=== PATIENT | female | born 1990 | race Caucasian/White ===

== ENCOUNTER 2019-11-19 04:09 | Inpatient (IN) | payer OTHER ==
[2019-11-19 04:57] VITALS: BMI 28.7
[2019-11-19] MEDS ORDERED: hydrALAZINE 20 MG/ML VIAL SLOW IVP PRN ×2 (05:39→05:50)
[2019-11-19 05:43] LABS: Amnisure Test RUPTURE DETECTED (No Rupture)
[2019-11-19 05:44] LABS: Amnisure Internal Control QC ACCEPTABLE (ACCEPTABLE)
[2019-11-19] MEDS ORDERED: Promethazine HCl 25 MG/ML VIAL IM PRN (05:50)
[2019-11-19] MEDS ORDERED: Lidocaine 1% (PF) 30 ML VIAL SC PRN (05:50)
[2019-11-19] MEDS ORDERED: NS / Oxytocin 40 units/1000ml 1,000 ML IV PRN (05:50)
[2019-11-19] MEDS ORDERED: Ondansetron PF 4 MG/2 ML Vial IVP PRN (05:50)
--- NOTE | 2019-11-19 06:28 | PRG ---
DATE OF SERVICE: 11/19/2019 PRIMARY OB: Dr. Leighton Garcia. CHIEF COMPLAINT: Leakage of fluid. HISTORY OF PRESENT ILLNESS: The patient is a 29-year-old, G4, P2 female with an intrauterine at 35 weeks and 5 days, presenting to Labor and Delivery after experiencing a large gush of fluid at around 4:30 this morning, followed by some persistent wetness. The patient reports she is feeling contractions that she would describe as Julio Cesar Marks at this time and reports that she lost her mucus plug yesterday. The patient denies any recent illness, fever, cough, headache, chest pain, or shortness of breath. She reports she has been having some nausea recently. Denies any vomiting. Reports a little bit of constipation. Denies diarrhea. Denies any new rashes, hip problems, knee problems, or muscle weakness. Denies vaginal bleeding, urinary urgency or frequency. PAST MEDICAL HISTORY: Hypothyroidism. PAST SURGICAL HISTORY: Right breast fibroadenoma removal, left wrist cystectomy, and D and C. MEDICATIONS: 1. Levothyroxine 200 mcg. 2. vitamins. ALLERGIES: NO KNOWN DRUG ALLERGIES. SOCIAL HISTORY: Denies drug, alcohol, or tobacco use. OB LABS: Blood type is O negative. Antibody screen is negative. Rubella is reactive, immune. RPR is nonreactive. Hepatitis B surface antigen nonreactive. HIV nonreactive. Paps negative. GC chlamydia is negative. One-hour Glucola is 132. REVIEW OF SYSTEMS: Per HPI. PHYSICAL EXAMINATION: VITAL SIGNS: Blood pressure 122/70, heart rate of 88, respiratory rate 18, saturating 100% on room air, and temperature 98.5. GENERAL: She appears to be in no acute distress. She is alert, oriented, cooperative, and pleasant to interact with. HEAD: Normocephalic and atraumatic. LUNGS: Clear to auscultation bilaterally. HEART: Regular rate and rhythm. ABDOMEN: Gravid and soft, nontender. EXTREMITIES: Nontender, nonedematous. : Per nursing staff is 2, 50, -2 station, who reports very wet perineum. AmniSure test has been collected and sent, results are not available at this moment. heart tracing for A shows baseline of 150s with moderate long-term variability, positive 10 x 10 accelerations, no decelerations. Baby B shows also baseline in the 150s. Appears to be distinct from baby A with the same baseline in the 150s, moderate long-term variability, 10 x 10 accelerations. Tocometer showing contractions about every 5 to 7 minutes. We will confirm by ultrasound presentation of the baby. ASSESSMENT AND PLAN: The patient is a 29-year-old, G4, P2 female with an intrauterine of di-di twin gestation at 35 weeks and 5 days, here for concerns of rupture of membranes. AmniSure test should be back soon. If it results as positive, plus her history is pretty convincing she has had rupture of membranes, will be admitted for induction of labor. Should it come back negative, we will proceed with a speculum exam for confirmatory testing. Dr. Garcia, her primary OB will be notified. Job ID: [id number]
[2019-11-19] MEDS: Betamet Acet/Betamet Na Ph 30 MG/5 ML VIAL IM SCH ×2 (06:39→18:30)
[2019-11-19] MEDS ORDERED: Ampicillin 2 GM in Sodium Chloride 0.9% 100 ML IVPB SCH ×2 (06:45→12:00)
[2019-11-19] MEDS: Dextrose 5%-Lactated Ringers 1,000 ML IV SCH ×2 (07:05→16:00)
[2019-11-19 07:23] LABS: Hemoglobin 10.1 g/dL (12.0-16.0); Mean Corpuscular HGB CONC 34.2 g/dL (32.0-36.0); Mean Corpuscular Hemoglobin 28.5 pg (27.0-31.0); Mean Corpuscular Volume 83.3 fL (78.0-98.0); Platelet Count 139 thou/uL (130-400); RBC Distribution Width 12.7 % (11.5-14.5); Red Blood Cell (RBC) Count 3.53 mill/uL (4.20-5.40)
--- NOTE | 2019-11-19 08:02 | ULT ---
Obstetrical ultrasound: 11/19/2019 HISTORY: Twin gestation, premature rupture of membranes, mild pelvic pain TECHNIQUE: Multiplanar grayscale sonographic imaging of the gravid uterus obtained. FINDINGS: This is a limited examination. Twin A demonstrates a vertex presentation. heart rate of 20 A is 152 bpm. Twin B demonstrates a vertex presentation with a heart rate of 153 bpm. anatomy is not assessed on this examination. Amniotic fluid volume appears qualitatively low. A mniotic fluid index was not measured by the physical education department chair. Placental tissue is seen anterior to fetus A and fetus B. No evidence for placental previa or abruption seen on this examination. IMPRESSION: Limited assessment of twin gestation as detailed above.
[2019-11-19 08:06] LABS: HBSAg Index 0.15 S/CO (0-0.99); Hep B Surf Ag Non-Reactive S/CO (NonReactive); Syphilis Antibody Nonreactive (Nonreactive); Syphilis Antibody Index 0.04 S/CO (<1.00 Non-Reactive)
[2019-11-19] MEDS: Ampicillin 2 GM in Sodium Chloride 0.9% 100 ML IVPB SCH ×2 (14:00→20:03)
[2019-11-19] MEDS ORDERED: Zolpidem Tartrate 5 MG TAB PO SCH (21:00)
[2019-11-19] MEDS ORDERED: FLU VACC QS2019-20(6MOS UP)/PF 60 MCG/0.5 ML SYRINGE IM ONE (21:00)
[2019-11-20] MEDS ORDERED: hydrALAZINE 20 MG/ML VIAL SLOW IVP PRN (00:41)
[2019-11-20] MEDS ORDERED: Lanolin Ointment 7 GM TUBE TOP PRN (00:41)
[2019-11-20] MEDS ORDERED: Ondansetron PF 4 MG/2 ML Vial IVP PRN (00:41)
[2019-11-20] MEDS ORDERED: Milk Of Magnesia 30 ML UDCUP PO PRN (00:41)
[2019-11-20] MEDS ORDERED: Bisacodyl 10 MG SUPP PR PRN (00:41)
--- NOTE | 2019-11-20 00:46 | DN ---
DATE OF PROCEDURE: 11/20/2019 TIME OF INTERVENTION: Roughly 0001 until 0020. LOCATION: L and D bed 11. This is a patient of Dr. Garcia. NARRATIVE: In brief, I was called stat to LDR 11 for delivery of the twins that were about 35 weeks. I arrived between 45 seconds and 1 minute after being called. When I arrived, Dr. Derek Mota and Dr. Loya were the first on scene and the baby (twin A), who was a female, was already in the warmer. Based on the story that I received, it looks like the patient got up to go to the restroom, had an urge to push and the baby delivered in the bathroom unattended. I have no details of that delivery. It is unclear who put the baby in the warmer, but by the story that I received, it may have been the who grabbed the child and put the baby on the warmer. Jackelin Bravo was the nurse who arrived next right around this time and clamped the cord, but it was not bleeding. Once again, the baby's umbilical cord seems to have avulsed, but it is unclear how much bleeding occurred. NICU has been made aware of this. By the time I arrived, ultrasound was being performed by Deana Ojeda (family services worker) to confirm cephalic. Dr. Loya was also confirming cephalic on exam and noted that the patient was complete-complete. Dr. Derek Mota then stepped in as I was assessing the situation and getting gowned. The patient proceeded then to twin B delivery in a cephalic presentation, of a vigorous female. Twin B delivered at around 0010. The placenta shortly followed thereafter at about 0014 and there was 2 placentas fused. This was sent to pathology. NICU was present for this. Dr. Garcia arrived as we were taking the patient down from lithotomy after placental delivery. I gave report to Dr. Garcia at roughly 0025. Job ID: [id number]
[2019-11-20] MEDS ORDERED: Misoprostol 200 MCG TAB ONE (00:52)
--- NOTE | 2019-11-20 00:59 | PDOC.OPDEL ---
OB Operative/Delivery Note - Additional Findings/Plan Compilations/Other Findings: Vaginal Delivery Procedure note Delivering Physician: Dr. Derek Mota Attending: Radha Barnes Pope Procedure: Spontaneous Vaginal Delivery Anesthesia: none EBL: 350ml Pre-op Diagnosis: 1. Term intrauterine in labor 2. Twin Gestation 3. Premature ROM Post-op Diagnosis: 1. Term intrauterine , delivered 2. same as above Indications: A 29y/o female at 35.5wks presented with SROM Delivery Note: Provider was sitting at OB desk charting, heard screams and then a cry for help. When provider entered the room mother and father were in the restroom and father was holding baby with umbilical cord dangling. Father handed to provider and infant was noted to be crying, vigorous, and pink. Provider yelled out for help, L&D nursing came to the room and vidal alert was pressed. Father stated mother got up to go to the restroom, she was 3 cm at her last check, while on the toilet she felt babys head coming so she squatted down and delivered baby onto the floor. This was approximately 1201. By the time provider placed infant in warmer mother had made her way to the bed. Bedside US was used to confirm cephalic presentation of 2nd infant. Mother pushed with contraction and bulging bag was noted and rupture with amniotomy hook. Shortly thereafter Twin B was delivered at 1210 over intact perineum in the ASHWINI position. Anterior Shoulder and then remainder of the body delivered. No nuchal cord. Cord clamped after delayed cord clamping of 1 minute and cut and cord blood collected. Placenta delivered intact in the [place] presentation. Fundal massage was performed and the fundus was firm. The cervix and vagina were inspected and found to have hemostatic 1st degree perineal tear for which no repair was necessary. The placenta was examined and found to have di/di presentation. There was only one cord appreciated. There was a long cord hanging from twin A after the precipitous delivery so it is presumed that the cord avulsed from the placenta at time of delivery. Both infants were vigorous and transferred to the NICU. Case with discussed with NICU team, they will check CBC on twin A as there was at least 50ml of blood loss on the floor.
[2019-11-20] MEDS ORDERED: NS / Oxytocin 40 units/1000ml 1,000 ML IV SCH (01:00)
[2019-11-20] MEDS ORDERED: Misoprostol 200 MCG TAB PR SCH (01:15)
[2019-11-20] MEDS: Ibuprofen 800 MG TAB PO SCH ×3 (02:11→17:22)
[2019-11-20] MEDS: Acetaminophen/Codeine 30-300mg Tablet PO PRN ×2 (05:12→21:54)
[2019-11-20] MEDS: Dextrose 5%-Lactated Ringers 1,000 ML IV SCH (06:14)
[2019-11-20] MEDS: Ampicillin 2 GM in Sodium Chloride 0.9% 100 ML IVPB SCH (06:14)
[2019-11-20] MEDS ORDERED: Adacel (T-DAP) 0.5 ML SYRINGE IM ONE (09:00)
[2019-11-20] MEDS: Docusate Calcium (SURFAK) 240 MG CAP PO SCH ×2 (09:25→21:54)
[2019-11-20] MEDS: Prenatal Vitamin 1 TAB PO SCH (09:25)
[2019-11-20] MEDS: Ferrous Sulfate 325 MG TAB PO SCH ×2 (09:26→15:52)
[2019-11-21] MEDS: Ibuprofen 800 MG TAB PO SCH ×3 (01:21→16:33)
[2019-11-21] MEDS: Ferrous Sulfate 325 MG TAB PO SCH ×2 (08:07→16:17)
[2019-11-21 08:30] VITALS: BP 107/59; TEMP 97.8
[2019-11-21] MEDS: Prenatal Vitamin 1 TAB PO SCH (10:20)
[2019-11-21] MEDS: Docusate Calcium (SURFAK) 240 MG CAP PO SCH (10:20)
== END 2019-11-21 18:45 | disposition home or self-care (01) | DRG 805 ==
LOC: L&D/OP 04:09 → L&D 12:20 → 3SE 11-20 04:17
PROVIDERS: ADMIT Obstetrics & Gynecology; ATTEND Obstetrics & Gynecology
PROC: 10E0XZZ Delivery of Products of Conception, External Approach (ICD-10-PCS; principal; 2019-11-20)
PROC: 3E0P7VZ Introduction of Hormone into Female Reproductive, Via Natural or Artificial Opening (ICD-10-PCS; 2019-11-20)
PROC: 3E033VJ Introduction of Other Hormone into Peripheral Vein, Percutaneous Approach (ICD-10-PCS; 2019-11-20)
DX: O76 Abnormality in fetal heart rate and rhythm complicating labor and delivery (principal); O60.14X0 Preterm labor third trimester with preterm delivery third trimester, not applicable or unspecified; Z37.2 Twins, both liveborn; E03.9 Hypothyroidism, unspecified; O99.284 Endocrine, nutritional and metabolic diseases complicating childbirth; O62.3 Precipitate labor; O42.913 Preterm premature rupture of membranes, unspecified as to length of time between rupture and onset of labor, third trimester; O70.0 First degree perineal laceration during delivery; O30.043 Twin pregnancy, dichorionic/diamniotic, third trimester; Z79.890 Hormone replacement therapy; Z3A.35 35 weeks gestation of pregnancy
CPT/HCPCS: 36415; 76815; 84112; 85027; 85461; 86780; 86850; 86870; 86900; 86901; 87340; 88307; 90384; 96372; 99285; J0290; J0702; J3490